=== PATIENT | male | born 1955 | race Native Hawaiian/Other Pacific Islander ===

== ENCOUNTER 2017-12-21 23:29 | Emergency (ER) | payer OTHER ==
[~2017-12-21] VITALS: Ht 185.4 cm; Wt 86.2 kg
[2017-12-22] MEDS ORDERED: METF500T8 (00:12)
[2017-12-22] MEDS ORDERED: METF500T61 (00:12)
[2017-12-22] MEDS ORDERED: LISI10TA2 (00:12)
[2017-12-22] MEDS ORDERED: SAXA5TAB (00:12)
[2017-12-22] MEDS ORDERED: ATOR80TA76 (00:12)
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
[2017-12-22 00:48] LABS: BASOPHILS % (AUTO) 0 % (0-10); EOSINOPHILS % (AUTO) 0 % (0-10); HEMATOCRIT 38 % (40-54); HEMOGLOBIN 13.1 G/DL (13.3-17.7); LYMPHOCYTES # (AUTO) 1.3 X 10^3 (1.0-4.0); LYMPHOCYTES % (AUTO) 17 % (12-44); MEAN CORPUSCULAR HEMOGLOBIN 33 PG (25-34); MEAN CORPUSCULAR HGB CONC 35 G/DL (32-36); MEAN CORPUSCULAR VOLUME 95 FL (80-99); MEAN PLATELET VOLUME 8.6 FL (7.4-10.4); MONOCYTES # (AUTO) 0.5 X 10^3 (0.0-1.0); MONOCYTES % (AUTO) 6 % (0-12); NEUTROPHILS % (AUTO) 76 % (42-75); PLATELET COUNT 271 10^3/uL (130-400); RED CELL DISTRIBUTION WIDTH 14.6 % (10.0-14.5); WHITE BLOOD COUNT 7.8 10^3/uL (4.3-11.0)
[2017-12-22 01:14] LABS: ALANINE AMINOTRANSFERASE 34 U/L (0-55); ALBUMIN 4.1 GM/DL (3.2-4.5); ALKALINE PHOSPHATASE 107 U/L (40-136); BILIRUBIN,TOTAL 0.4 MG/DL (0.1-1.0); BUN/CREATININE RATIO 17; CALCIUM 9.1 MG/DL (8.5-10.1); CARBON DIOXIDE 20 MMOL/L (21-32); CHLORIDE 109 MMOL/L (98-107); CREATININE SERUM 0.72 MG/DL (0.60-1.30); GFR ESTIMATED > 60; GLUCOSE 153 MG/DL (70-105); POTASSIUM 3.5 MMOL/L (3.6-5.0); SODIUM 144 MMOL/L (135-145); TOTAL PROTEIN 7.8 GM/DL (6.4-8.2)
[2017-12-22 01:55] LABS: BILIRUBIN,URINE NEGATIVE (NEGATIVE); CLARITY,URINE CLEAR; COLOR,URINE YELLOW; GLUCOSE, URINE (UA) 1+ (NEGATIVE); KETONES,URINE NEGATIVE (NEGATIVE); LEUKOCYTE ESTERASE ,URINE NEGATIVE (NEGATIVE); NITRITE,URINE NEGATIVE (NEGATIVE); PH,URINE 5 (5-9); PROTEIN,URINE 1+ (NEGATIVE); UROBILINOGEN,URINE NORMAL (NORMAL)
[2017-12-22 02:07] LABS: BACTERIA,URINE NEGATIVE /HPF; RBC,URINE RARE /HPF; SQUAMOUS EPITHELIAL CELL,UR 0-2 /HPF
[2017-12-22 02:09] LABS: AMPHETAMINE SCREEN, URINE NEGATIVE (NEGATIVE); BARBITURATE SCREEN URINE NEGATIVE (NEGATIVE); BENZODIAZEPINES SCREEN URINE NEGATIVE (NEGATIVE); CANNABINOID SCREEN, URINE POSITIVE (NEGATIVE); COCAINE SCREEN URINE NEGATIVE (NEGATIVE); METHADONE STAT NEGATIVE (NEGATIVE); METHAMPHETAMINE SCREEN URINE S NEGATIVE (NEGATIVE); OPIATE SCREEN URINE NEGATIVE (NEGATIVE); OXYCODONE STAT NEGATIVE (NEGATIVE); PROPOXYPHENE STAT NEGATIVE (NEGATIVE); TRICYCLIC ANTIDEPRESSANTS SCRE NEGATIVE (NEGATIVE)
[2017-12-22] MEDS ORDERED: ONDA4TAB11 PO (02:43)
[2017-12-22 02:52] VITALS: BP 152/75
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
--- NOTE | 2017-12-22 06:59 | Diagnostic Imaging Report ---
INDICATION: Abrasions and swelling to head and face. Rib pain. Findings: The heart size is normal. Lungs are clear. There is no pleural effusion or pneumothorax. There is no evidence of a rib fracture. IMPRESSION: No evidence of displaced rib fracture. Dictated by: Dictated on workstation # [id number]
== END 2017-12-22 02:52 | disposition home or self-care (01) ==
LOC: ER 23:33
DX: S00.03XA Contusion of scalp, initial encounter (principal); E11.9 Type 2 diabetes mellitus without complications; E78.00 Pure hypercholesterolemia, unspecified; I10 Essential (primary) hypertension; F12.90 Cannabis use, unspecified, uncomplicated; F17.210 Nicotine dependence, cigarettes, uncomplicated; Z95.1 Presence of aortocoronary bypass graft; X58.XXXA Exposure to other specified factors, initial encounter
CPT/HCPCS: 36415; 70450; 70486; 71100; 72125; 80053; 80306; 80320; 81000; 84484; 85025; 93005

== ENCOUNTER 2019-09-11 21:20 | Emergency (ER) | payer OTHER ==
[~2019-09-11] VITALS: Ht 185 cm; Wt 81.8 kg
[~2019-09-11 21:20] MED LIST: ATOR80TA76; LISI10TA2; METF500T61; METF500T8; ONDA4TAB11 PO; SAXA5TAB
[2019-09-11] MEDS ORDERED: NS IV 1000 ML 1,000 ML IV SCH (21:30)
--- NOTE | 2019-09-11 21:36 | ED General ---
General Stated Complaint: CONSTIPATION Source of Information: Patient, EMS Exam Limitations: No Limitations (KIMBERLYN ELLIS APRN) History of Present Illness Date Seen by Provider: Sep 11, 2019 Time Seen by Provider: 21:32 Initial Comments To ER per EMS from home with reports of constipation. No bowel movement in 2 days. Reports lower pelvic pain. No vomiting, drinks about 1 pint of whiskey per day. Timing/Duration: 1-2 Days Severity: Moderate Associated Systoms: Denies Symptoms (KIMBERLYN ELLIS APRN) Allergies and Home Medications Allergies Coded Allergies: No Known Drug Allergies (Unverified , 12/22/17) Home Medications Ondansetron 4 Mg Tab.rapdis, 4 MG PO Q6H PRN for NAUSEA/VOMITING Prescribed by: KITTY DORADO on 12/22/17 0243 Polyethylene Glycol 3350 17 Gm Powd.pack, 17 GM PO BID Prescribed by: BIANCA DWYER on 09/11/19 2212 Patient Home Medication List Home Medication List Reviewed: Yes (KIMBERLYN ELLIS APRN) Review of Systems Review of Systems Constitutional: see HPI EENTM: see HPI Respiratory: no symptoms reported Cardiovascular: no symptoms reported Gastrointestinal: constipation Genitourinary: no symptoms reported Musculoskeletal: no symptoms reported Skin: no symptoms reported Psychiatric/Neurological: No Symptoms Reported Hematologic/Lymphatic: No Symptoms Reported Immunological/Allergic: no symptoms reported (KIMBERLYN ELLIS APRN) Past Kfgywlg-Lkssmn-Qmrlxs Hx Patient Social History Alcohol Beverage of Choice: Vodka Type Used: Cigarettes Recent Foreign Travel: No Contact w/Someone Who Travel: No Recent Hopitalizations: No (KIMBERLYN ELLIS APRN) Past Medical History Surgeries: Yes CABG Respiratory: No Cardiac: Yes High Cholesterol, Hypertension Neurological: No Genitourinary: No Gastrointestinal: No Musculoskeletal: No Endocrine: Yes Diabetes, Non-Insulin dep Cancer: No Psychosocial: No (KIMBERLYN ELLIS APRN) Physical Exam Vital Signs Vital Signs - First Documented 09/11/19 21:22 Temp 36.2 Pulse 93 Resp 18 B/P (MAP) 179/100 (126) Pulse Ox 95 O2 Delivery Room Air (BIANCA DWYER MD) Vital Signs Capillary Refill : (KIMBERLYN ELLIS APRN) Height, Weight, BMI Height: 6'1.00" Weight: 190lbs. oz. [id number]; BMI Method:Estimated General Appearance: No Apparent Distress, WD/WN Eyes: Bilateral Eye Normal Inspection, Bilateral Eye PERRL, Bilateral Eye EOMI HEENT: PERRL/EOMI, TMs Normal Neck: Full Range of Motion, Normal Inspection Respiratory: No Accessory Muscle Use, No Respiratory Distress Gastrointestinal: Normal Bowel Sounds, Soft, Tenderness (suprapubic) Rectal: Other (fecal impaction on digital rectal exam. We'll give an enema.) Extremity: Normal Capillary Refill, Normal Inspection, Other (a missing left great toe, previous complication of diabetes while living in [facility].) Neurologic/Psychiatric: Alert, Oriented x3 Skin: Normal Color, Warm/Dry (KIMBERLYN ELLIS APRN) Progress/Results/Core Measures Suspected Sepsis SIRS Temperature: Pulse: Respiratory Rate: Laboratory Tests 09/11/19 21:33: White Blood Count 6.8 Blood Pressure / Mean: Laboratory Tests 09/11/19 21:33: Creatinine 0.77, INR Comment 1.0, Platelet Count 324, Total Bilirubin 0.5 (KIMBERLYN ELLIS APRN) Results/Orders Lab Results Laboratory Tests Test 09/11/19 21:33 Range/Units White Blood Count 6.8 4.3-11.0 10^3/uL Red Blood Count 3.57 L 4.35-5.85 10^6/uL Hemoglobin 11.4 L 13.3-17.7 G/DL Hematocrit 34 L 40-54 % Mean Corpuscular Volume 96 80-99 FL Mean Corpuscular Hemoglobin 32 25-34 PG Mean Corpuscular Hemoglobin Concent 33 32-36 G/DL Red Cell Distribution Width 18.8 H 10.0-14.5 % Platelet Count 324 130-400 10^3/uL Mean Platelet Volume 8.1 7.4-10.4 FL Neutrophils (%) (Auto) 81 H 42-75 % Lymphocytes (%) (Auto) 14 12-44 % Monocytes (%) (Auto) 5 0-12 % Eosinophils (%) (Auto) 0 0-10 % Basophils (%) (Auto) 0 0-10 % Neutrophils # (Auto) 5.5 1.8-7.8 X 10^3 Lymphocytes # (Auto) 0.9 L 1.0-4.0 X 10^3 Monocytes # (Auto) 0.4 0.0-1.0 X 10^3 Eosinophils # (Auto) 0.0 0.0-0.3 10^3/uL Basophils # (Auto) 0.0 0.0-0.1 10^3/uL Sodium Level 147 H 135-145 MMOL/L Potassium Level 4.3 3.6-5.0 MMOL/L Chloride Level 105 98-107 MMOL/L Carbon Dioxide Level 23 21-32 MMOL/L Anion Gap 19 H 5-14 MMOL/L Blood Urea Nitrogen 14 7-18 MG/DL Creatinine 0.77 0.60-1.30 MG/DL Estimat Glomerular Filtration Rate > 60 BUN/Creatinine Ratio 18 Glucose Level 142 H 70-105 MG/DL Calcium Level 9.0 8.5-10.1 MG/DL Corrected Calcium 9.0 8.5-10.1 MG/DL Total Bilirubin 0.5 0.1-1.0 MG/DL Aspartate Amino Transf (AST/SGOT) 141 H 5-34 U/L Alanine Aminotransferase (ALT/SGPT) 409 H 0-55 U/L Alkaline Phosphatase 151 H 40-136 U/L Total Protein 7.5 6.4-8.2 GM/DL Albumin 4.0 3.2-4.5 GM/DL Serum Alcohol 355 *H <10 MG/DL (BIANCA DWYER MD) Vital Signs/I&O 09/11/19 21:22 Temp 36.2 Pulse 93 Resp 18 B/P (MAP) 179/100 (126) Pulse Ox 95 O2 Delivery Room Air (BIANCA DWYER MD) Vital Signs/I&O Capillary Refill : (KIMBERLYN ELLIS APRN) Departure Communication (Admissions) minimal results with soapsuds enema administered by me. Only had out what i put in. Will give magnesium citrate. (KIMBERLYN ELLIS APRN) Impression Primary Impression: Constipation Qualified Codes: K59.00 - Constipation, unspecified Disposition: HOME, SELF-CARE Condition: Stable Departure-Patient Inst. Decision time for Depature: 22:12 (BIANCA DWYER MD) Referrals: NO,LOCAL PHYSICIAN (PCP/Family) Primary Care Physician Patient Instructions: Constipation, Adult (DC) Add. Discharge Instructions: 1. Return to ER for any concerns 2. Use miralax as directed Scripts Polyethylene Glycol 3350 (Miralax) 17 Gm Powd.pack 17 GM PO BID, #6 EACH Prov: BIANCA DWYER MD 09/11/19 KIMBERLYN ELLIS APRN Sep 11, 2019 21:36 BIANCA DWYER MD Sep 11, 2019 22:12
[2019-09-11 21:41] LABS: BASOPHILS % (AUTO) 0 % (0-10); EOSINOPHILS % (AUTO) 0 % (0-10); HEMATOCRIT 34 % (40-54); HEMOGLOBIN 11.4 G/DL (13.3-17.7); LYMPHOCYTES # (AUTO) 0.9 X 10^3 (1.0-4.0); LYMPHOCYTES % (AUTO) 14 % (12-44); MEAN CORPUSCULAR HEMOGLOBIN 32 PG (25-34); MEAN CORPUSCULAR HGB CONC 33 G/DL (32-36); MEAN CORPUSCULAR VOLUME 96 FL (80-99); MEAN PLATELET VOLUME 8.1 FL (7.4-10.4); MONOCYTES # (AUTO) 0.4 X 10^3 (0.0-1.0); MONOCYTES % (AUTO) 5 % (0-12); NEUTROPHILS # (AUTO) 5.5 X 10^3 (1.8-7.8); NEUTROPHILS % (AUTO) 81 % (42-75); PLATELET COUNT 324 10^3/uL (130-400); RED CELL DISTRIBUTION WIDTH 18.8 % (10.0-14.5); WHITE BLOOD COUNT 6.8 10^3/uL (4.3-11.0)
[2019-09-11 21:58] LABS: ALANINE AMINOTRANSFERASE 409 U/L (0-55); ALKALINE PHOSPHATASE 151 U/L (40-136); BILIRUBIN,TOTAL 0.5 MG/DL (0.1-1.0); BUN/CREATININE RATIO 18; CARBON DIOXIDE 23 MMOL/L (21-32); CHLORIDE 105 MMOL/L (98-107); CREATININE SERUM 0.77 MG/DL (0.60-1.30); GFR ESTIMATED > 60; GLUCOSE 142 MG/DL (70-105); POTASSIUM 4.3 MMOL/L (3.6-5.0); SODIUM 147 MMOL/L (135-145); TOTAL PROTEIN 7.5 GM/DL (6.4-8.2)
[2019-09-11] MEDS ORDERED: POLY17PO6 PO (22:12)
[2019-09-11 22:18] LABS: PROTHROMBIN TIME PATIENT 13.7 SEC (12.2-14.7)
[2019-09-11] MEDS ORDERED: MAGNESIUM CITRATE 300 ML BTL PO ONE (22:30)
--- NOTE | 2019-09-11 22:45 | NUR ---
Patient had a large, hard bowel movement prior to discharge.
[2019-09-11 22:47] VITALS: BP 174/101
--- NOTE | 2019-09-12 07:04 | Diagnostic Imaging Report ---
INDICATION: Abdominal pain. PA chest, supine and upright abdominal images are obtained. FINDINGS: There are postoperative changes from a median sternotomy. There is left basilar atelectasis. There is no intraperitoneal free air. There are degenerative changes in lumbar spine. Bowel gas pattern is normal. There are no pathologic masses or calcifications. There is a moderate amount of stool in the ascending colon. Remainder of the colon relatively clear. IMPRESSION: No acute abnormalities in the abdomen. Dictated by: Dictated on workstation # [id number]
== END 2019-09-11 22:47 | disposition home or self-care (01) ==
LOC: EDUNIT# 21:20 → ER 21:21
DX: K59.00 Constipation, unspecified (principal); I10 Essential (primary) hypertension; E11.9 Type 2 diabetes mellitus without complications; E78.00 Pure hypercholesterolemia, unspecified; Z95.1 Presence of aortocoronary bypass graft
CPT/HCPCS: 36415; 74022; 80053; 80320; 85025; 85610; 96360

== ENCOUNTER 2019-10-24 09:57 | Emergency (ER) | payer OTHER ==
[~2019-10-24] VITALS: Ht 185 cm; Wt 83.4 kg
[~2019-10-24 09:57] MED LIST changes: +METF500T19; -METF500T8; +POLY17PO6 PO
--- NOTE | 2019-10-24 10:59 | ED Integumentary General ---
General Chief Complaint: Skin/Wound Problems Stated Complaint: TOE PAIN Nursing Triage Note: pt present to ed with complaints of l third toe wound/bruising. noticed it yesterday but doesnt remember any injury. pt also complains of wound to r forearm. Source: patient Exam Limitations: no limitations History of Present Illness Date Seen by Provider: Oct 24, 2019 Time Seen by Provider: 10:52 Initial Comments 64 year old male who presents to the ED with c/o left 3 toe bruising and wound to the dorsal surface. He reports that he fell 3 days ago and thinks he injured it then. He denies pain. 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 He has healing abrasion to right forearm. He has hypertension today and reports that he did not take his metoprolol as prescribed today. Timing/Duration: yesterday Location: feet Allergies and Home Medications Allergies Coded Allergies: No Known Drug Allergies (Unverified , 12/22/17) Home Medications Ondansetron 4 Mg Tab.rapdis, 4 MG PO Q6H PRN for NAUSEA/VOMITING Prescribed by: KITTY DORADO on 12/22/17 0243 Polyethylene Glycol 3350 17 Gm Powd.pack, 17 GM PO BID Prescribed by: BIANCA DWYER on 09/11/19 2212 Patient Home Medication List Home Medication List Reviewed: Yes Review of Systems Review of Systems Constitutional: see HPI; No chills, No fever Skin: see HPI, other (abrasion to the dorsal surface of the left 3rd toe and echymosis to the ordonez surface of the same toe. ) Past Xlkdgzd-Rvkask-Gewllm Hx Patient Social History Alcohol Use: Regular Use Number of Drinks Today: FF Alcohol Beverage of Choice: Vodka Recreational Drug Use: Yes (past hx of speed, lsd, opiods) Drug of Choice: weed Smoking Status: Current Everyday Smoker Type Used: Cigarettes 2nd Hand Smoke Exposure: Yes Recent Foreign Travel: No Contact w/Someone Who Travel: No Recent Infectious Disease Expo: No Recent Hopitalizations: No Physical Abuse: No Sexual Abuse: No Mistreated: No Fear: No Immunizations Up To Date PED Vaccines UTD: Yes Seasonal Allergies Seasonal Allergies: No Past Medical History Surgeries: Yes (l big toe amputation) Cardiac, CABG, Orthopedic Respiratory: No Cardiac: Yes Coronary Artery Disease, High Cholesterol, Hypertension Neurological: No Genitourinary: No Gastrointestinal: Yes Liver Disease/Jaundice Musculoskeletal: Yes (toe amputation from diabetes) Endocrine: Yes Diabetes, Non-Insulin dep HEENT: No Cancer: No Psychosocial: No Integumentary: No Physical Exam Vital Signs Vital Signs - First Documented 10/24/19 10:10 Temp 36.7 Pulse 121 Resp 16 B/P (MAP) 181/123 (142) Pulse Ox 93 Capillary Refill : Less Than 3 Seconds General Appearance: WD/WN, no apparent distress HEENT: PERRL/EOMI, normal ENT inspection, TMs normal, pharynx normal Cardiovascular: normal peripheral pulses, regular rate, rhythm, no edema, no gallop, no JVD, no murmur Respiratory: chest non-tender, lungs clear, normal breath sounds, no respiratory distress, no accessory muscle use Skin: normal color, warm/dry Skin Problem Location: lower extremities (left third toe ecchymosis to the palmar surface and abrasion to the dorsal surface, no surrounding erythema or drainage to suggest infection.) Progress/Results/Core Measures Results/Orders My Orders Orders - DESHAWN MARIE Toe(S) (10/24/19 10:55) Metoprolol Succinate (Xl) Tab (Toprol Xl (10/24/19 11:00) Vital Signs/I&O 10/24/19 10/24/19 10:10 12:23 Temp 36.7 Pulse 121 95 Resp 16 16 B/P (MAP) 181/123 (142) 169/93 Pulse Ox 93 99 Blood Pressure Mean: 142 POS Departure Impression Primary Impression: Abrasion Additional Impression: Fracture of second toe, left, closed Qualified Codes: S92.502K - Displaced unspecified fracture of left lesser toe(s), subsequent encounter for fracture with nonunion Disposition: 01 HOME, SELF-CARE Condition: Stable/Unchanged Departure-Patient Inst. Decision time for Depature: 12:11 Referrals: SAMUEL LANDRY MD NO,LOCAL PHYSICIAN (PCP) Primary Care Physician Patient Instructions: Wound Care (DC), Skin Abrasions (DC), Toe Fracture (DC) Add. Discharge Instructions: Performed good wound care to the left third toe. Watch for signs of infection such as increased redness, swelling, drainage, pain. Call Dr. Garibay appointment to schedule follow-up wound care to ensure that this heals appropriately. Return back to emergency room for worsening symptoms, signs of infection, fevers, or any other concerns as needed. All discharge instructions reviewed with patient and/or family. Voiced understanding. DESHAWN MARIE Oct 24, 2019 10:59 POS
[2019-10-24] MEDS ORDERED: meTOproloL SUCCINATE 50 MG (TOPROL XL) TAB PO SCH (11:00)
--- NOTE | 2019-10-24 12:01 | Diagnostic Imaging Report ---
INDICATION: Bruising, wound. COMPARISON: None available. TECHNIQUE: Three radiographs of the left toes dated October 24, 2019. FINDINGS: The first digit is absent distal to the level of the first metatarsal neck. A fracture is identified associated with the second metatarsal neck. Significant callus formation is noted about this fracture plane, though fracture plane remains well visualized. Mild dorsal displacement is noted. No additional acute fracture. No destructive osseous process. No suspicious radiopaque foreign body. Moderate vascular calcifications. IMPRESSION: Healing subacute mildly dorsally displaced fracture involving the second metatarsal neck. Given persistent fracture lucency, developing nonunion may be present. Recommend continued radiographic follow-up and comparison to prior imaging. Presumed amputation involving the distal first metatarsal. No evidence of osseous destruction. If there remains concern for underlying osteomyelitis, follow-up radiographs in 10-14 days would be recommended. Alternately, MRI with and without contrast could also be considered. Dictated by: Dictated on workstation # [id number]
[2019-10-24 12:23] VITALS: BP 169/93
== END 2019-10-24 12:22 | disposition home or self-care (01) ==
LOC: EDUNIT# 09:57 → ER 09:58
DX: S92.502A Displaced unspecified fracture of left lesser toe(s), initial encounter for closed fracture (principal); S90.415A Abrasion, left lesser toe(s), initial encounter; S50.811A Abrasion of right forearm, initial encounter; I10 Essential (primary) hypertension; E11.9 Type 2 diabetes mellitus without complications; E78.00 Pure hypercholesterolemia, unspecified; I25.10 Atherosclerotic heart disease of native coronary artery without angina pectoris; F17.210 Nicotine dependence, cigarettes, uncomplicated; Z91.14 Patient's other noncompliance with medication regimen; Z95.1 Presence of aortocoronary bypass graft; Z89.412 Acquired absence of left great toe; W19.XXXA Unspecified fall, initial encounter
CPT/HCPCS: 73660

== ENCOUNTER → 2020-11-17 | Outpatient (CLI) | payer MEDICARE, OTHER ==
[~2020-11-17] MED LIST changes: +AMLO-251 PO; +AMOX1TAB12 PO; +ASPI-999 PO; -ATOR80TA76; +ATOR80TA76 PO; +CLOP75TA28 PO; +INSU100V5 SQ; -LISI10TA2; +LISI10TA2 PO; +METF-865 PO; -METF500T19; +METO-461 PO; +METO50TA15 PO
== END ==
LOC: WOUNDCARE 13:18
PROVIDERS: ATTEND Surgery
DX: I70.234 Atherosclerosis of native arteries of right leg with ulceration of heel and midfoot (principal); E11.621 Type 2 diabetes mellitus with foot ulcer; L97.416 Non-pressure chronic ulcer of right heel and midfoot with bone involvement without evidence of necrosis; L97.412 Non-pressure chronic ulcer of right heel and midfoot with fat layer exposed; L97.212 Non-pressure chronic ulcer of right calf with fat layer exposed; T65.222A Toxic effect of tobacco cigarettes, intentional self-harm, initial encounter; F17.218 Nicotine dependence, cigarettes, with other nicotine-induced disorders
CPT/HCPCS: A6266; G0463; 99213

== ENCOUNTER → 2022-08-11 | Outpatient (CLI) | payer MEDICARE, OTHER ==
[~2022-08-11] MED LIST changes: -LISI10TA2 PO; +LISI10TA25 PO
== END ==
LOC: WOUNDCARE 08:47
PROVIDERS: ATTEND Family Medicine
DX: T81.31XA Disruption of external operation (surgical) wound, not elsewhere classified, initial encounter (principal); M86.472 Chronic osteomyelitis with draining sinus, left ankle and foot; E11.621 Type 2 diabetes mellitus with foot ulcer; E11.40 Type 2 diabetes mellitus with diabetic neuropathy, unspecified; I70.245 Atherosclerosis of native arteries of left leg with ulceration of other part of foot
CPT/HCPCS: 99213

== ENCOUNTER → 2022-08-23 | Outpatient (CLI) | payer MEDICARE | LOC: WOUNDCARE 08:05 | PROVIDERS: ATTEND Family Medicine | DX: T81.31XA Disruption of external operation (surgical) wound, not elsewhere classified, initial encounter (principal); M86.472 Chronic osteomyelitis with draining sinus, left ankle and foot; E11.621 Type 2 diabetes mellitus with foot ulcer; L97.509 Non-pressure chronic ulcer of other part of unspecified foot with unspecified severity; E11.40 Type 2 diabetes mellitus with diabetic neuropathy, unspecified; I70.245 Atherosclerosis of native arteries of left leg with ulceration of other part of foot | CPT/HCPCS: 11042; G0463 ==

== ENCOUNTER → 2022-08-30 | Outpatient (CLI) | payer MEDICARE | LOC: WOUNDCARE 09:02 | PROVIDERS: ATTEND Family Medicine | DX: T81.31XA Disruption of external operation (surgical) wound, not elsewhere classified, initial encounter (principal); M86.472 Chronic osteomyelitis with draining sinus, left ankle and foot; E11.621 Type 2 diabetes mellitus with foot ulcer; E11.40 Type 2 diabetes mellitus with diabetic neuropathy, unspecified; E11.52 Type 2 diabetes mellitus with diabetic peripheral angiopathy with gangrene; I70.245 Atherosclerosis of native arteries of left leg with ulceration of other part of foot; I96 Gangrene, not elsewhere classified | CPT/HCPCS: 11042; A6207; G0463 ==

== ENCOUNTER → 2022-09-06 | Outpatient (CLI) | payer MEDICARE | LOC: WOUNDCARE 08:12 | PROVIDERS: ATTEND Family Medicine | DX: T81.31XA Disruption of external operation (surgical) wound, not elsewhere classified, initial encounter (principal); M86.472 Chronic osteomyelitis with draining sinus, left ankle and foot; E11.621 Type 2 diabetes mellitus with foot ulcer; E11.42 Type 2 diabetes mellitus with diabetic polyneuropathy; I70.245 Atherosclerosis of native arteries of left leg with ulceration of other part of foot; L97.509 Non-pressure chronic ulcer of other part of unspecified foot with unspecified severity | CPT/HCPCS: 11042; G0463 ==

== ENCOUNTER → 2022-09-14 | Outpatient (CLI) | payer MEDICARE | LOC: WOUNDCARE 08:09 | PROVIDERS: ATTEND Family Medicine | DX: T81.31XA Disruption of external operation (surgical) wound, not elsewhere classified, initial encounter (principal); I96 Gangrene, not elsewhere classified; M86.472 Chronic osteomyelitis with draining sinus, left ankle and foot; E11.621 Type 2 diabetes mellitus with foot ulcer; E11.40 Type 2 diabetes mellitus with diabetic neuropathy, unspecified; I70.245 Atherosclerosis of native arteries of left leg with ulceration of other part of foot; E11.52 Type 2 diabetes mellitus with diabetic peripheral angiopathy with gangrene | CPT/HCPCS: 11042; A6021; G0463 ==

== ENCOUNTER → 2022-09-19 | Outpatient (RCR) | payer MEDICARE ==
[~2022-09-19] MED LIST changes: +AMLO-250 PO; +ASPI-1238 PO; +FERR-84 PO; +ISOS30TA82 PO; +LISI5TAB20 PO; +METF-397 PO; +MULT-1136 PO; +PANT40TA52 PO; +POTA99CA PO; +RIVA2.5T5 PO; +SILD20TA14 PO
== END | disposition home or self-care (01) ==
LOC: WOUNDCARE 08-22 08:16
PROVIDERS: ATTEND Family Medicine
DX: M86.679 Other chronic osteomyelitis, unspecified ankle and foot (principal)
CPT/HCPCS: 82947; G0277; 99183

== ENCOUNTER → 2022-09-20 | Outpatient (CLI) | payer MEDICARE | LOC: WOUNDCARE 08:12 | PROVIDERS: ATTEND Family Medicine | DX: T81.31XA Disruption of external operation (surgical) wound, not elsewhere classified, initial encounter (principal); M86.472 Chronic osteomyelitis with draining sinus, left ankle and foot; E11.621 Type 2 diabetes mellitus with foot ulcer; E11.40 Type 2 diabetes mellitus with diabetic neuropathy, unspecified; I70.245 Atherosclerosis of native arteries of left leg with ulceration of other part of foot | CPT/HCPCS: 11042; 85652; 86141; A6021; G0463; 36415 ==

== ENCOUNTER 2022-09-22 11:01 | Observation (INO) | payer MEDICARE ==
[~2022-09-22] VITALS: Ht 185.5 cm; Wt 71.0 kg
[~2022-09-22 11:01] MED LIST changes: -AMLO-250 PO; -ASPI-1238 PO; -FERR-84 PO; -ISOS30TA82 PO; -LISI5TAB20 PO; -METF-397 PO; -MULT-1136 PO; -PANT40TA52 PO; -POTA99CA PO; -RIVA2.5T5 PO; -SILD20TA14 PO
[2022-09-22 11:57] LABS: BASOPHILS % (AUTO) 0 % (0-10); EOSINOPHILS # (AUTO) 0.1 10^3/uL (0.0-0.3); EOSINOPHILS % (AUTO) 1 % (0-10); HEMATOCRIT 32 % (40-54); HEMOGLOBIN 10.1 g/dL (13.3-17.7); LYMPHOCYTES # (AUTO) 1.3 10^3/uL (1.0-4.0); LYMPHOCYTES % (AUTO) 16 % (12-44); MEAN CORPUSCULAR HEMOGLOBIN 28 pg (25-34); MEAN CORPUSCULAR HGB CONC 31 g/dL (32-36); MEAN CORPUSCULAR VOLUME 89 fL (80-99); MEAN PLATELET VOLUME 8.7 fL (9.0-12.2); MONOCYTES # (AUTO) 0.5 10^3/uL (0.0-1.0); MONOCYTES % (AUTO) 7 % (0-12); NEUTROPHILS # (AUTO) 6.3 10^3/uL (1.8-7.8); NEUTROPHILS % (AUTO) 77 % (42-75); PLATELET COUNT 302 10^3/uL (130-400); WHITE BLOOD COUNT 8.2 10^3/uL (4.3-11.0)
--- NOTE | 2022-09-22 11:59 | ED Chest Pain ---
General Chief Complaint: Chest Pain Stated Complaint: MUSCLE TIGHTNESS Nursing Triage Note: PT AMB TO ED BY POV WITH C/O INTERMITTENT L SIDED CHEST WALL PAIN. PT REPORTS PAIN STARTED 3 DAYS AGO, WENT AWAY, BUT CAME BACK THIS MORNING AROUND 0730. PT HAS CARDIAC HX, BUT STATES THIS DOES NOT FEEL SIMILAR. WORSE WITH PALPATION AND MOVEMENT, PAIN DOES NOT RADIATE. DENIES N/V, SOB. Source: patient Exam Limitations: no limitations History of Present Illness Date Seen by Provider: Sep 22, 2022 Time Seen by Provider: 11:40 Initial Comments Patient is a 67-year-old male with a history of insulin-dependent diabetes, coronary artery disease status post coronary artery bypass grafting, peripheral vascular disease status post femorofemoral bypass who presents to the emergency department with a chief complaint of substernal chest pain this morning at 0730 while walking and to get hyperbaric therapy for a wound on his foot. He states that it felt like it was not inside his chest, his chest wall feels tender. He states no shortness of breath with it, nausea or sweating. He has not had cardiac evaluation he states since he had bypass surgery, does not currently have a local leasing consultant. He is treated through [facility]. He states he also had episodes yesterday and the day prior. He denies recent illness such as fever, chills, cough or congestion. No trauma. He is currently on Plavix. Pain-free at the time of presentation. All other review of systems reviewed and negative except as stated Timing/Duration: 4-6 hours Severity/Quality: mild, sharp Location: central Radiation: no radiation Activities at Onset: activity (walking) Prior CP/Workup: other (prior CABG) ASA po PHOTOGRAPHER MODEL: No NTG SL PHOTOGRAPHER MODEL: No Associated Symptoms: denies symptoms Allergies and Home Medications Allergies Coded Allergies: No Known Drug Allergies (Unverified , 12/22/17) Patient Home Medication List Home Medication List Reviewed: Yes Amlodipine Besylate (Amlodipine Besylate) 5 Mg Tablet, 2.5 MG PO DAILY, (Reported) Entered as Reported by: MARIOLA TSAI on 09/22/22 031 Last Action: Continued Atorvastatin Calcium (Atorvastatin Calcium) 80 Mg Tablet, 80 MG PO HS, (Reported) Entered as Reported by: MARIOLA TSAI on 09/22/22 864 Last Action: Continued Clopidogrel Bisulfate (Clopidogrel) 75 Mg Tablet, 75 MG PO DAILY, (Reported) Entered as Reported by: MARIOLA TSAI on 09/22/221533 Last Action: Continued Ferrous Sulfate (Iron) 325 Mg (65 Mg Iron) Tablet, 325 MG PO DAILY, (Reported) Entered as Reported by: MARIOLA TSAI on 09/22/221532 Last Action: Held Insulin Determir (Levemir) 100 Unit/Ml Soln, 10 UNITS SQ BID, (Reported) Entered as Reported by: DAVID WICK on 11/07/20 1645 Last Action: Continued Lisinopril (Lisinopril) 5 Mg Tablet, 5 MG PO DAILY, (Reported) Entered as Reported by: MARIOLA TSAI on 09/22/221532 Last Action: Continued Metformin HCl (Metformin HCl) 500 Mg Tablet, 500 MG PO BID, (Reported) Entered as Reported by: MARIOLA TSAI on 09/22/221532 Last Action: Held Multivitamin (Multivitamin) 1 Each Tablet, 1 EACH PO DAILY, (Reported) Entered as Reported by: MARIOLA TSAI on 09/22/221532 Last Action: Held Pantoprazole Sodium (Pantoprazole Sodium) 40 Mg Tablet.dr, 40 MG PO DAILY, (Reported) Entered as Reported by: MARIOLA TSAI on 09/22/221532 Last Action: Continued Potassium Citrate (Potassium) 99 Mg Capsule, 99 MG PO HS, (Reported) Entered as Reported by: MARIOLA TSAI on 09/22/221532 Last Action: Held Rivaroxaban (Xarelto) 2.5 Mg Tablet, 2.5 MG PO BID, (Reported) Entered as Reported by: MARIOLA TSAI on 09/22/221532 Last Action: Converted Sildenafil Citrate (Sildenafil) 20 Mg Tablet, 20 MG PO UD PRN for ED, (Reported) Entered as Reported by: MARIOLA TSAI on 09/22/221532 Last Action: Held Discontinued Medications Amlodipine Besylate (Amlodipine Besylate) 10 Mg Tablet, 10 MG PO DAILY Discontinued Reason: No Longer Taking Prescribed by: BAYLEE HUIZAR on 11/11/20 1210 Last Action: Discontinued Amoxicillin/Potassium Clav (Amox Tr-K Clv 875-125 mg Tab) 1 Each Tablet, 875 MG PO BID WITH MEALS Discontinued Reason: No Longer Taking Prescribed by: MADELAINE RIVERA on 11/11/20 1629 Last Action: Discontinued Aspirin (Aspirin) 81 Mg Tab.chew, 81 MG PO DAILY, (Reported) Discontinued Reason: No Longer Taking Entered as Reported by: DAVID WICK on 11/07/20 1644 Last Action: Discontinued Atorvastatin Calcium (Atorvastatin Calcium) 80 Mg Tablet, 40 MG PO HS, (Reported) Discontinued Reason: No Longer Taking Entered as Reported by: CRISTAL LAGUNA on 12/22/1711 Last Action: Discontinued Clopidogrel Bisulfate (Clopidogrel) 75 Mg Tablet, 75 MG PO DAILY Discontinued Reason: No Longer Taking Prescribed by: BAYLEE HUIZAR on 11/11/20 121 Last Action: Discontinued Lisinopril (Lisinopril) 10 Mg Tablet, 10 MG PO DAILY, (Reported) Discontinued Reason: No Longer Taking Entered as Reported by: CRISTAL LAGUNA on 12/22/1711 Last Action: Discontinued Metformin HCl (Metformin HCl ER) 500 Mg Tab.er.24h, 500 MG PO BID, (Reported) Discontinued Reason: No Longer Taking Entered as Reported by: CRISTAL LAGUNA on 12/22/1711 Last Action: Discontinued Metoprolol Tartrate (Lopressor) 100 Mg Tablet, 100 MG PO BID Discontinued Reason: No Longer Taking Prescribed by: BAYLEE HUIZAR on 11/11/201209 Last Action: Discontinued Review of Systems Review of Systems Constitutional: see HPI EENTM: No Symptoms Reported Respiratory: No Symptoms Reported Cardiovascular: Chest Pain Past [place]-Kclbal Hx Patient Social History Tobacco Use?: No Smoking Status: Former Smoker Use of E-Cig and/or Vaping dev: No Substance use?: Yes Substance type: Marijuana Substance frequency: Daily Alcohol Use?: No Pt feels they are or have been: No Immunizations Up To Date PED Vaccines UTD: Yes Influenza Vaccine Up-to-Date: No; Not Current First/Initial COVID19 Vaccinat: 2020 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[employer] Seasonal Allergies Seasonal Allergies: No Past Medical History Surgery/Hospitalization HX: TRIPLE BYPASS, HTN, DM2, PAD Surgeries: Yes (LEFT big toe amputation) Cardiac, CABG, Orthopedic Respiratory: No Currently Using CPAP: No Currently Using BIPAP: No Cardiac: Yes (CABG) Coronary Artery Disease, High Cholesterol, Hypertension Neurological: No Genitourinary: No Gastrointestinal: Yes Liver Disease/Jaundice Musculoskeletal: Yes (toe amputation from diabetes) Amputee Endocrine: Yes Diabetes, Non-Insulin dep HEENT: No Cancer: No Psychosocial: No Integumentary: No Blood Disorders: No Family Medical History No Pertinent Family Hx Physical Exam Vital Signs Vital Signs - First Documented 09/22/22 11:10 Temp 36.9 Pulse 72 Resp 16 B/P (MAP) 129/76 (93) Pulse Ox 95 O2 Delivery Room Air Capillary Refill : Less Than 3 Seconds Height, Weight, BMI Height: 6'1.00" Weight: 190lbs. oz. 86.668577ux; 21.00 BMI Method:Estimated General Appearance: No Apparent Distress, Thin HEENT: PERRL/EOMI Neck: Normal Inspection Respiratory: Lungs Clear, Normal Breath Sounds, No Accessory Muscle Use, No Res piratory Distress, Other (chest is slightly tender to palpation over the sternum; very prominent sternum) Cardiovascular: Regular Rate, Rhythm Gastrointestinal: Non Tender, Soft Extremity: Normal Capillary Refill, Normal Inspection, Normal Range of Motion, Non Tender, No Calf Tenderness, No Pedal Edema Neurologic/Psychiatric: Alert, Oriented x3, No Motor/Sensory Deficits, Normal Mood/Affect, broadcaster II-XII Norm as Tested Skin: Normal Color, Warm/Dry Progress/Results/Core Measures Results/Orders Lab Results Laboratory Tests Test 09/22/22 11:40 Range/Units White Blood Count 8.2 4.3-11.0 10^3/uL Red Blood Count 3.65 L 4.30-5.52 10^6/uL Hemoglobin 10.1 L 13.3-17.7 g/dL Hematocrit 32 L 40-54 % Mean Corpuscular Volume 89 80-99 fL Mean Corpuscular Hemoglobin 28 25-34 pg Mean Corpuscular Hemoglobin Concent 31 L 32-36 g/dL Red Cell Distribution Width 17.1 H 10.0-14.5 % Platelet Count 302 130-400 10^3/uL Mean Platelet Volume 8.7 L 9.0-12.2 fL Immature Granulocyte % (Auto) 0 % Neutrophils (%) (Auto) 77 H 42-75 % Lymphocytes (%) (Auto) 16 12-44 % Monocytes (%) (Auto) 7 0-12 % Eosinophils (%) (Auto) 1 0-10 % Basophils (%) (Auto) 0 0-10 % Neutrophils # (Auto) 6.3 1.8-7.8 10^3/uL Lymphocytes # (Auto) 1.3 1.0-4.0 10^3/uL Monocytes # (Auto) 0.5 0.0-1.0 10^3/uL Eosinophils # (Auto) 0.1 0.0-0.3 10^3/uL Basophils # (Auto) 0.0 0.0-0.1 10^3/uL Immature Granulocyte # (Auto) 0.0 0.0-0.1 10^3/uL Prothrombin Time 16.4 H 12.2-14.7 SEC INR Comment 1.3 0.8-1.4 Activated Partial Thromboplast Time 38 H 24-35 SEC Sodium Level 140 135-145 MMOL/L Potassium Level 5.2 H 3.6-5.0 MMOL/L Chloride Level 106 98-107 MMOL/L Carbon Dioxide Level 25 21-32 MMOL/L Anion Gap 9 5-14 MMOL/L Blood Urea Nitrogen 36 H 7-18 MG/DL Creatinine 1.05 0.60-1.30 MG/DL Estimat Glomerular Filtration Rate 78 BUN/Creatinine Ratio 34 Glucose Level 114 H 70-105 MG/DL Calcium Level 9.2 8.5-10.1 MG/DL Corrected Calcium 9.7 8.5-10.1 MG/DL Magnesium Level 1.7 1.6-2.4 MG/DL Total Bilirubin 0.2 0.1-1.0 MG/DL Aspartate Amino Transf (AST/SGOT) 33 5-34 U/L Alanine Aminotransferase (ALT/SGPT) 44 0-55 U/L Alkaline Phosphatase 126 40-136 U/L Myoglobin 112.3 H 10.0-92.0 NG/ML Troponin I 0.061 H <0.028 NG/ML Total Protein 6.9 6.4-8.2 GM/DL Albumin 3.4 3.2-4.5 GM/DL My Orders Orders - NORMA TAMEZ MD Cbc With Automated Diff (09/22/22 11:51) Magnesium (09/22/22 11:51) Chest 1 View, Ap/Pa Only (09/22/22 11:51) Comprehensive Metabolic Panel (09/22/22 11:51) Myoglobin Serum (09/22/22 11:51) Protime With Inr (09/22/22 11:51) Partial Thromboplastin Time (09/22/22 11:51) O2 (09/22/22 11:51) Monitor-Rhythm Ecg Trace Only (09/22/22 11:51) Ed Iv/Invasive Line Start (09/22/22 11:51) Troponin I [place] (09/22/22 11:51) Aspirin Chewable Tablet (Baby Aspirin Ch (09/22/22 12:15) Ekg Tracing (09/22/22 12:32) Ed Admission (Communication) (09/22/22 13:41) Medications Given in ED Vital Signs/I&O 09/22/22 11:10 Temp 36.9 Pulse 72 Resp 16 B/P (MAP) 129/76 (93) Pulse Ox 95 O2 Delivery Room Air Blood Pressure Mean: 93 Admisison Planning May Need Admission (Planning): 12:32 Progress Progress Note : Time: 12:32 Progress Note Noted positive troponin from the lab. Vital signs of been stable. Patient was pain-free on admission to the ER. We will consult with cardiology, Dr. Soto and admit to Dr. Pereyra for further cardiac evaluation. Initial ECG Impression Date: Sep 22, 2022 Initial ECG Impression Time: 11:51 Initial ECG Rate: 59 Initial ECG Rhythm: Normal Sinus Initial ECG Intervals: Normal Initial ECG Impression: Normal Diagnostic Imaging Diagonstic Imaging: Xray Plain Films/CT/US/NM/MRI: chest Comments [facility]. [place], [place] NAME: WILD FARRAR Semaj [facility] REC#: [id number] PT STATUS: REG ER : 1955 PHYSICIAN: NORMA TAMEZ MD ADMIT DATE: 09/22/22/ER Draft Date of Exam:09/22/22 CHEST 1 VIEW, AP/PA ONLY Indication: Intermittent left-sided chest wall pain. Time of Exam: 11:54 AM Correlation is made with prior chest 09/11/2019. Changes of median sternotomy are noted. There appears to be a small left pleural effusion. There may be minimal infiltrate or atelectasis in the left base, as well. Right lung is clear. No pneumothorax is identified. IMPRESSION: Small left pleural effusion with mild left basilar infiltrate and/or atelectasis. Dictated on workstation # [id number] Dict: 09/22/22 1210 Trans: 09/22/[address] [facility] [id number] Interpreted by: OLEGARIO MOODY MD Electronically signed by: Departure Communication (Admissions) Time/Spoke to Admitting Phy: 13:[address] Pereyra - she will do que'd orders Time/Spoke to Consulting Phy: 13:[address] Soto Impression Primary Impression: Elevated troponin Additional Impression: Diabetes Qualified Codes: E13.59 - Other specified diabetes mellitus with other circulatory complications; Z79.4 - vermin exterminator (current) use of insulin Disposition: ADMITTED INPATIENT Condition: Stable Admissions Decision to Admit Reason: Admit from ER (General) Decision to Admit/Date: Sep 22, 2022 Time/Decision to Admit Time: 13:08 Departure-Patient Inst. Referrals: NO,LOCAL PHYSICIAN (PCP/Family) Primary Care Physician NORMA TAMEZ MD Sep 22, 2022 11:59
[2022-09-22 12:01] LABS: ALBUMIN 3.4 GM/DL (3.2-4.5); POTASSIUM 5.2 MMOL/L (3.6-5.0)
[2022-09-22 12:02] LABS: CALCIUM 9.2 MG/DL (8.5-10.1)
[2022-09-22 12:03] LABS: INR 1.3 (0.8-1.4); PROTHROMBIN TIME PATIENT 16.4 SEC (12.2-14.7); TOTAL PROTEIN 6.9 GM/DL (6.4-8.2)
[2022-09-22 12:05] LABS: BILIRUBIN,TOTAL 0.2 MG/DL (0.1-1.0)
[2022-09-22 12:07] LABS: CREATININE SERUM 1.05 MG/DL (0.60-1.30)
[2022-09-22 12:10] LABS: MAGNESIUM 1.7 MG/DL (1.6-2.4)
--- NOTE | 2022-09-22 12:13 | Diagnostic Imaging Report ---
Indication: Intermittent left-sided chest wall pain. Time of Exam: 11:54 AM Correlation is made with prior chest 09/11/2019. Changes of median sternotomy are noted. There appears to be a small left pleural effusion. There may be minimal infiltrate or atelectasis in the left base, as well. Right lung is clear. No pneumothorax is identified. IMPRESSION: Small left pleural effusion with mild left basilar infiltrate and/or atelectasis. Dictated by: Dictated on workstation # [id number]
[2022-09-22] MEDS ORDERED: ASPIRIN 81 MG CHEW (CHILDREN'S ASA) PO ONE (12:15)
[2022-09-22] MEDS ORDERED: MELATONIN 3 MG TABLET PO PRN (14:30)
[2022-09-22] MEDS ORDERED: polyethylene glycoL POWDER 17 GM (MIRALAX) PACK PO PRN (14:30)
[2022-09-22] MEDS ORDERED: ACETAMINOPHEN 325 MG TABLET PO PRN (14:30)
[2022-09-22] MEDS ORDERED: ONDANSETRON 4 MG/2 ML (SDV) Z0FRAN IV PRN (14:30)
[2022-09-22 14:50] VITALS: BP 141/92
[2022-09-22] MEDS ORDERED: ENOXAPARIN 150 MG/ML (LOVENOX) SYR SQ SCH (15:00)
--- NOTE | 2022-09-22 15:11 | Consultation-Cardiology ---
HPI-Cardiology Cardiology Consultation Date of Consultation 09/22/22 Date of Admission Time Seen by Provider: 15:01 Indication: Chest pain HPI 67 years old gentleman with a history of diabetes mellitus, coronary artery disease, history of CABG, peripheral arterial disease, femoropopliteal bypass, hypertension and hyperlipidemia. Admitted with increasing chest pain, nature in the retrosternal area usually with exertion, he was at the hyperbaric chamber With therapy for his nonhealing wound. He was referred to the emergency room, noted to have mild elevation in troponin. Responded to sublingual nitroglycerin Home Medications & Allergies Allergies: Coded Allergies: No Known Drug Allergies (Unverified , 12/22/17) Home Medication List Reviewed: Yes IWA-Dwdcbm-Lrlupr Hx Patient Social History Marital Status: Employed/Student: retired Drug of Choice: THC Smoking Status: Former Smoker Type Used: Cigarettes 2nd Hand Smoke Exposure: Yes Recent Hopitalizations: No Have you traveled recently?: No Alcohol Use?: No Substance type: Marijuana Past Medical History Discussed below Family Medical History Significant Family History: No Pertinent Family Hx Review of Systems-General Review of Systems Constitutional: see HPI EENTM: see HPI, no symptoms reported Respiratory: no symptoms reported, see HPI, dyspnea on exertion Cardiovascular: see HPI, chest pain Gastrointestinal: no symptoms reported, see HPI Genitourinary: no symptoms reported, see HPI Musculoskeletal: no symptoms reported, see HPI Skin: no symptoms reported, see HPI Psychiatric/Neurological: No Symptoms Reported, See HPI Reviewed Test Results Reviewed Test Results Lab Laboratory Tests Test 09/22/22 11:40 Range/Units White Blood Count 8.2 4.3-11.0 10^3/uL Red Blood Count 3.65 L 4.30-5.52 10^6/uL Hemoglobin 10.1 L 13.3-17.7 g/dL Hematocrit 32 L 40-54 % Mean Corpuscular Volume 89 80-99 fL Mean Corpuscular Hemoglobin 28 25-34 pg Mean Corpuscular Hemoglobin Concent 31 L 32-36 g/dL Red Cell Distribution Width 17.1 H 10.0-14.5 % Platelet Count 302 130-400 10^3/uL Mean Platelet Volume 8.7 L 9.0-12.2 fL Immature Granulocyte % (Auto) 0 % Neutrophils (%) (Auto) 77 H 42-75 % Lymphocytes (%) (Auto) 16 12-44 % Monocytes (%) (Auto) 7 0-12 % Eosinophils (%) (Auto) 1 0-10 % Basophils (%) (Auto) 0 0-10 % Neutrophils # (Auto) 6.3 1.8-7.8 10^3/uL Lymphocytes # (Auto) 1.3 1.0-4.0 10^3/uL Monocytes # (Auto) 0.5 0.0-1.0 10^3/uL Eosinophils # (Auto) 0.1 0.0-0.3 10^3/uL Basophils # (Auto) 0.0 0.0-0.1 10^3/uL Immature Granulocyte # (Auto) 0.0 0.0-0.1 10^3/uL Prothrombin Time 16.4 H 12.2-14.7 SEC INR Comment 1.3 0.8-1.4 Activated Partial Thromboplast Time 38 H 24-35 SEC Sodium Level 140 135-145 MMOL/L Potassium Level 5.2 H 3.6-5.0 MMOL/L Chloride Level 106 98-107 MMOL/L Carbon Dioxide Level 25 21-32 MMOL/L Anion Gap 9 5-14 MMOL/L Blood Urea Nitrogen 36 H 7-18 MG/DL Creatinine 1.05 0.60-1.30 MG/DL Estimat Glomerular Filtration Rate 78 BUN/Creatinine Ratio 34 Glucose Level 114 H 70-105 MG/DL Calcium Level 9.2 8.5-10.1 MG/DL Corrected Calcium 9.7 8.5-10.1 MG/DL Magnesium Level 1.7 1.6-2.4 MG/DL Total Bilirubin 0.2 0.1-1.0 MG/DL Aspartate Amino Transf (AST/SGOT) 33 5-34 U/L Alanine Aminotransferase (ALT/SGPT) 44 0-55 U/L Alkaline Phosphatase 126 40-136 U/L Myoglobin 112.3 H 10.0-92.0 NG/ML Troponin I 0.061 H <0.028 NG/ML Total Protein 6.9 6.4-8.2 GM/DL Albumin 3.4 3.2-4.5 GM/DL Physical Exam Physical Exam Vital Signs Vital Signs - First Documented 09/22/22 11:10 Temp 36.9 Pulse 72 Resp 16 B/P (MAP) 129/76 (93) Pulse Ox 95 O2 Delivery Room Air Capillary Refill : Less Than 3 Seconds Height, Weight, BMI Height: 6'1.00" Weight: 190lbs. oz. 86.320835ey; 21.00 BMI Method:Estimated General Appearance: No Apparent Distress, WD/WN Eyes: Bilateral Eye Normal Inspection, Bilateral Eye PERRL, Bilateral Eye EOMI HEENT: PERRL/EOMI, TMs Normal, Normal ENT Inspection, Pharynx Normal, Moist Mucous Membranes Neck: Full Range of Motion, Normal Inspection, Non Tender, Supple, Carotid Bruit Respiratory: Chest Non Tender, Normal Breath Sounds, No Accessory Muscle Use, No Respiratory Distress Cardiovascular: Regular Rate, Rhythm, No Edema, No JVD, Normal Peripheral Pulses, Systolic Murmur, Gallop/S3 Gastrointestinal: Normal Bowel Sounds, No Organomegaly, No Pulsatile Mass, Non Tender, Soft Back: Normal Inspection, No CVA Tenderness, No Vertebral Tenderness Extremity: Normal Inspection, Normal Range of Motion, Non Tender Neurologic/Psychiatric: Alert, Oriented x3, No Motor/Sensory Deficits, Normal Mood/Affect Skin: Normal Color, Warm/Dry Lymphatic: No Adenopathy A/P-Cardiology Admission Diagnosis Chest pain Unstable angina Coronary artery disease Peripheral arterial disease Assessment/Plan Chest pain resembling angina, unstable angina. Mild elevation in troponin Started on aspirin and Plavix, repeat troponin level and follow the trend, probably will need cardiac catheterization possible PTCA Coronary artery disease, history of CABG x3 done in 2007 in [facility]. No recent cardiac work-up Severe extensive peripheral arterial disease, had angiogram done in October 2020, the right side had 50% stenosis of the right common iliac, total occlusion of the common femoral artery with distal reconstruction, 90% distal superficial femoral artery with two-vessel runoff. On the left side there is a long 99% common femoral occlusion with distal reconstruction, occlusion of the popliteal artery. Nonhealing ulcer of the foot, had multiple amputation, patient is currently undergoing hyperbaric chamber treatment History of severe pulmonary hypertension, will evaluate 2D echocardiogram COPD Diabetes mellitus, followed and managed by primary care physician Active smoking, educated on smoking cessation. Clinical Quality Measures AMI/AHF: ASA po Prior to arrival: RJ Wise MD Sep 22, 2022 15:10
[2022-09-22 15:33] VITALS: BP 123/50
[2022-09-22] MEDS ORDERED: PANT40TA52 PO (15:33)
[2022-09-22] MEDS ORDERED: SILD20TA14 PO (15:33)
[2022-09-22] MEDS ORDERED: AMLO-250 PO (15:33)
[2022-09-22] MEDS ORDERED: METF-397 PO (15:33)
[2022-09-22] MEDS ORDERED: POTA99CA PO (15:33)
[2022-09-22] MEDS ORDERED: FERR-84 PO (15:33)
[2022-09-22] MEDS ORDERED: RIVA2.5T5 PO (15:33)
[2022-09-22] MEDS ORDERED: LISI5TAB20 PO (15:33)
[2022-09-22] MEDS ORDERED: MULT-1136 PO (15:33)
[2022-09-22] MEDS ORDERED: ATOR80TA76 PO (15:34)
[2022-09-22] MEDS ORDERED: CLOP75TA28 PO (15:34)
--- NOTE | 2022-09-22 15:36 | History & Physical-Hospitalist ---
History of Present Illness HPI/Chief Complaint Patient is 67-year-old male with past medical history of coronary artery disease status post CABG, insulin-dependent diabetes type 2, hypertension, hyperlipidemia who presented to the emergency department due to chest pain. He reports that started this morning when he was walking into the hospital for hyperbaric therapy for a wound he has on his foot. He denies any associated dyspnea, nausea, diaphoresis and states it is mostly that his chest is tender. He had a CABG in 2007 and has not seen a reservationist since 2009. In the past year or 2 he states he has lost roughly 30 to 40 pounds due to dental issues and poor oral intake from that. He has prominent sternotomy wires noted on his chest and that is where he states his pain is and it is tender with palpation. Source: patient Date Seen 09/22/22 Time Seen by a Provider: 14:45 Attending Physician No,Local Physician PCP Admitting Physician: Curtis Pereyra MD Attending Physician: Curtis Pereyra MD Referring Physician Date of Admission Sep 22, 2022 at 13:42 Home Medications & Allergies Home Medications Reviewed patient Home Medication Reconciliation performed by pharmacy medication reconciliations casting technician and/or nursing. Patients Allergies have been reviewed. Allergies Allergies Coded Allergies No Known Drug Allergies (Unverified12/22/17) Past Esnbefn-Jxpdgp-Oukoyx Hx Patient Social History Marrital Status: Employed/Student: retired Tobacco Use?: No Smoking Status: Former Smoker Use of E-Cig and/or Vaping dev: No Substance use?: No (history of illicit drug use) Substance type: Methamphetamine, Hallucinogens, Nicotine, Marijuana Additional substance use comme: LSD/COKE--NO LONGER USES Substance frequency: Daily Alcohol Use?: No Additional Alcohol Comments: NO ETOH IN 3 YEARS Pt feels they are or have been: No Immunizations Up To Date First/Initial COVID19 Vaccinat: 2020 PED Vaccines UTD: Yes Seasonal Allergies Seasonal Allergies: No Current Status Advance Directives: No Communicates: Verbally Primary Language: Mosotho Preferred Spoken Language: Mosotho Is interpretation needed?: No Sensory deficits: Vision impairment, Hearing impairment Implanted or Applied Medical D: None Past Medical History Surgeries: Cardiac, CABG, Orthopedic Currently Using CPAP: No Currently Using BIPAP: No Coronary Artery Disease, High Cholesterol, Hypertension Liver Disease/Jaundice Amputee Diabetes, Non-Insulin dep Blood Disorders: No Family Medical History No Pertinent Family Hx Review of Systems Constitutional: no symptoms reported EENTM: no symptoms reported Respiratory: see HPI Cardiovascular: see HPI, chest pain Gastrointestinal: no symptoms reported Genitourinary: no symptoms reported Musculoskeletal: no symptoms reported Skin: no symptoms reported Psychiatric/Neurological: No Symptoms Reported Physical Exam Physical Exam Vital Signs Vital Signs - First Documented 09/22/22 11:10 Temp 36.9 Pulse 72 Resp 16 B/P (MAP) 129/76 (93) Pulse Ox 95 O2 Delivery Room Air Capillary Refill : Less Than 3 Seconds Height, Weight, BMI Height: 6'1.00" Weight: 190lbs. oz. 86.698829pp; 21.09 BMI Method:Estimated General Appearance: No Apparent Distress, Chronically ill, Thin HEENT: PERRL/EOMI, Moist Mucous Membranes; No Scleral Icterus (L), No Scleral Icterus (R) Neck: Normal Inspection, Supple Respiratory: Lungs Clear, No Accessory Muscle Use, No Respiratory Distress, Other (prominent sternotomy wires) Cardiovascular: Regular Rate, Rhythm, No Murmur Gastrointestinal: Normal Bowel Sounds, Non Tender, Soft Extremity: Normal Capillary Refill, No Calf Tenderness, No Pedal Edema Neurologic/Psychiatric: Alert, Oriented x3, Normal Mood/Affect Skin: Normal Color, Warm/Dry Results Results/Procedures Labs Laboratory Tests 09/22/22 11:40 09/23/22 05:30 09/23/22 05:50 Patient resulted labs reviewed. Imaging: Reviewed Imaging Report Imaging [facility], [place] NAME: JONATHAN FARRARHumza Cha [facility] REC#: [id number] PT STATUS: ADM Alice : 1955 PHYSICIAN: NORMA TAMEZ MD ADMIT DATE: 09/22/22/[facility] Signed Date of Exam:09/22/22 CHEST 1 VIEW, AP/PA ONLY Indication: Intermittent left-sided chest wall pain. Time of Exam: 11:54 AM Correlation is made with prior chest 09/11/2019. Changes of median sternotomy are noted. There appears to be a small left pleural effusion. There may be minimal infiltrate or atelectasis in the left base, as well. Right lung is clear. No pneumothorax is identified. IMPRESSION: Small left pleural effusion with mild left basilar infiltrate and/or atelectasis. Dictated by: Dictated on workstation # [id number] Dict: 09/22/22 1210 Trans: 09/22/22 1536 [facility] [id number] Interpreted by: OLEGARIO MOODY MD Electronically signed by: OLEGARIO MOODY MD 09/22/22 1536 Assessment/Plan Admission Diagnosis NSTEMI Admission Status: Observation Assessment and Plan NSTEMI CAD s/p CABG Troponin elevated on arrival Trend Telemetry Cardiology consulted, appreciate recs NPO until seen by cardiology IDDMII Only on Levemir at home SSI HTN HLD Continue home meds as able Clinical Quality Measures AMI/AHF: ASA po Prior to arrival: CURTIS Paez MD Sep 22, 2022 15:36
[2022-09-22] MEDS: ENOXAPARIN 80 MG/0.8 ML (LOVENOX) SYR SC SCH (15:38)
[2022-09-22] MEDS: NS IV 1000 ML 1,000 ML IV SCH (15:38)
[2022-09-22] MEDS ORDERED: FLU QUAD HIGH DOSE 240 MCG/0.7 ML 2022-23 (FLUZONE) IM ONE (15:45)
[2022-09-22] MEDS: inSUlin ASPART (NovoLOG) 1 UNIT/0.01 ML (CHARGE PER UNIT) SC SCH ×2 (15:55→20:47)
[2022-09-22 20:00] VITALS: BP 115/57
[2022-09-22] MEDS ORDERED: NON-FORMULARY MEDICATION 1 EA EA (Rivaroxaban (Xarelto) 2.5 MG) PO SCH (21:00)
[2022-09-23] VITALS: BP 95/53
[2022-09-23] MEDS: NS IV 1000 ML 1,000 ML IV SCH ×2 (02:21→10:08)
[2022-09-23] MEDS: ENOXAPARIN 80 MG/0.8 ML (LOVENOX) SYR SC SCH ×2 (04:26→18:27)
[2022-09-23] MEDS: inSUlin ASPART (NovoLOG) 1 UNIT/0.01 ML (CHARGE PER UNIT) SC SCH ×3 (05:40→17:22)
[2022-09-23 06:14] LABS: HEMATOCRIT 31 % (40-54); HEMOGLOBIN 9.9 g/dL (13.3-17.7); MEAN CORPUSCULAR HEMOGLOBIN 27 pg (25-34); MEAN CORPUSCULAR HGB CONC 32 g/dL (32-36); MEAN CORPUSCULAR VOLUME 86 fL (80-99); PLATELET COUNT 271 10^3/uL (130-400)
--- NOTE | 2022-09-23 06:48 | Discharge Inst-Simple/Standard ---
Discharge Inst-Standard Discharge Medications New, Converted or Re-Newed RX: Transmitted to Pharmacy Patient Instructions/Follow Up Plan of Care/Instructions/FU: Please continue to take your medications as written. Please follow up with your primary care doctor to follow up this hospital stay. Activity as Tolerated: Yes Discharge Diet: ADA Diet, Cardiac Diet Return to The Hospital For: Chest pain, shortness of breath, fever, weakness, if you feel you are getting worse. CURTIS BORGES MD Sep 23, 2022 06:48
[2022-09-23 06:50] LABS: POTASSIUM 4.3 MMOL/L (3.6-5.0)
[2022-09-23 06:52] LABS: CALCIUM 8.8 MG/DL (8.5-10.1)
[2022-09-23 06:56] LABS: CREATININE SERUM 0.72 MG/DL (0.60-1.30)
[2022-09-23 07:49] VITALS: BP 120/59
--- NOTE | 2022-09-23 08:31 | Cardiology Progress Note ---
Subjective Date Seen by Provider: Sep 23, 2022 Time Seen by Provider: 08:30 Subjective/Events-last exam Patient was seen at bedside, laying down comfortably, feeling better. No chest pain was reported Review of Systems General: No Chills, No Night Sweats, No Fatigue, No Malaise, No Appetite, No Other HEENT: No Head Aches, No Visual Changes, No Eye Pain, No Ear Pain, No Dysphasia, No Sinus Congestion, No Post Nasal Drip, No Sore Throat, No Other Pulmonary: No Dyspnea, No Cough, No Pleuritic Chest Pain, No Other Cardiovascular: No: Chest Pain, Palpitations, Orthopnea, Paroxysmal Noc. Dyspnea, Edema, Lt Headedness, Other Objective-Cardiology Exam Last Set of Vital Signs Vital Signs 09/23/22 09/23/22 00:00 07:49 Temp 37.4 Pulse 68 Resp 19 B/P (MAP) 120/59 (79) Pulse Ox 95 O2 Delivery Room Air I&O Intake and Output 09/23/22 00:00 Intake Total 340 ml Output Total 250 ml Balance 90 ml Intake Oral 340 ml Output Urine Total 250 ml Daily Weight Change Yes, Greater than 33 lbs General: Alert, Oriented X3, Cooperative HEENT: Atraumatic, PERRLA Neck: Supple, No JVD, No Thyromegaly Lungs: Clear to Auscultation, Normal Air Movement Heart: Regular Rate, Normal S1, Normal S2, Other (Systolic murmur at the left sternal border) Abdomen: Normal Bowel Sounds, Soft, No Tenderness, No Hepatosplenomegaly, No Masses Extremities: No Clubbing, No Cyanosis, No Edema, Normal Pulses, No Tenderness/Swelling Skin: No Rashes, No Breakdown, No Significant Lesion Neuro: Normal Gait, Normal Speech, Strength at 5/5 X4 Ext, Normal Tone, Sensation Intact Psych/Mental Status: Mental Status NL, Mood NL Results Lab Laboratory Tests 09/22/22 11:40 09/23/22 05:30 09/23/22 05:50 A/P-Cardiology Admission Diagnosis Chest pain Unstable angina Coronary artery disease Peripheral arterial disease Assessment/Plan Chest pain, unstable angina, non-ST elevation myocardial infarction Mild elevation in troponin Started on aspirin and Plavix, Planning to proceed with cardiac catheterization possible PTCA Coronary artery disease, history of CABG x3 done in 2007 in [facility]. No recent cardiac work-up Severe extensive peripheral arterial disease, had angiogram done in October 2020, the right side had 50% stenosis of the right common iliac, total occlusion of the common femoral artery with distal reconstruction, 90% distal superficial femoral artery with two-vessel runoff. On the left side there is a long 99% common femoral occlusion with distal reconstruction, occlusion of the popliteal artery. Nonhealing ulcer of the foot, had multiple amputation, patient is currently undergoing hyperbaric chamber treatment History of severe pulmonary hypertension, will evaluate 2D echocardiogram COPD Diabetes mellitus, followed and managed by primary care physician Active smoking, educated on smoking cessation. RJ ORTIZ MD Sep 23, 2022 08:31
--- NOTE | 2022-09-23 08:31 | Cardiac Procedure Note-CS/ASA ---
Pre-Procedure Note Pre-Op Procedure Note Date of Available H&P: Sep 23, 2022 Date H&P Reviewed: Sep 23, 2022 Time H&P Reviewed: 08:31 History & Physical: H&P Reviewed, Patient Examed, No changes noted Pre-Operative Diagnosis: NSTMI Conscious Sedation Pre-Proced Time 08:31 ASA Score 3 For ASA 3 and 4: Consider anesthesia and medical clearance. Also, for patients with a history of failed moderate sedation consider anesthesia. Airway Lungs Heart ASA score ASA 1: a normal healthy patient ASA 2: a patient with a mild systemic disease (mid diabetes, controlled hypertension, obesity ASA 3: a patient with a severe systemic disease that limits activity (angina, COPD, prior Myocardial infarction) ASA 4: a patient with an incapacitating disease that is a constant threat to life (CHF, renal failure) ASA 5: a moribund patient not expected to survive 24 hrs. (ruptured aneurysm) ASA 6: a declared brain- patient whose organs are being harvested. For emergent operations, add the letter E after the classification Mallampati Classification Grade 3 Sedation Plan Analgesia, Amnesia, Plan communicated to team members, Discussed options with patient/fam, Discussed risks with patient/fam The patient is an appropriate candidate to undergo the planned procedure, sedation, and anesthesia. The patient immediately re-assessed prior to indication. RJ ORTIZ MD Sep 23, 2022 08:31
[2022-09-23] MEDS ORDERED: amLODIPine 5 MG (NORVASC) TAB PO SCH (09:00)
[2022-09-23] MEDS ORDERED: RIVAROXABAN 2.5 MG TABLET (XARELTO) PO SCH (09:00)
[2022-09-23] MEDS ORDERED: PANTOPRAZOLE 40 MG (PROTONIX) TAB PO SCH (09:00)
[2022-09-23] MEDS ORDERED: lisINopril 5 MG (PRINIVIL) TABLET PO SCH (09:00)
[2022-09-23] MEDS ORDERED: CLOPIDOGREL 75 MG (PLAVIX) TABLET PO SCH (09:00)
[2022-09-23] MEDS ORDERED: HEParin 1000 UNIT/ML (10ML VIAL) FOR BOLUS ONE (09:10)
[2022-09-23] MEDS ORDERED: LIDOCAINE 1% INJ 30 ML (XYLOCAINE) VIAL ONE (09:10)
[2022-09-23] MEDS ORDERED: VERAPAMIL 5 MG/2 ML (CALAN) VIAL IV ONE (09:10)
[2022-09-23] MEDS ORDERED: MIDAZOLAM 2 MG/2 ML (VERSED) VIAL ONE (09:10)
[2022-09-23] MEDS ORDERED: fentaNYL INJ 100 MCG/2 ML AMP ONE (09:10)
[2022-09-23] MEDS ORDERED: HEParin (CATH LAB) 2,000 ML IV ONE (09:10)
[2022-09-23] MEDS ORDERED: NITRO DRIP 25000 MCG/D5W 250 ML IV ONE (09:11)
[2022-09-23] MEDS ORDERED: NS IV 1000 ML 1,000 ML IV SCH (10:15)
--- NOTE | 2022-09-23 10:23 | Cardiac Cath Report ---
Cardiac Cath Report Physician (s)/Cable Tool Driller (s) Physician RJ ORTIZ MD Pre-Procedure Diagnosis Pre-Procedure Diagnosis: NSTMI Post-Procedure Note Procedure Start Date: Sep 23, 2022 Name of Procedure: Left heart catheterization Vein graft angiogram, LOCKHART angiogram Aortic root angiogram Aortic arch angiogram Findings/Procedure Note PROCEDURE NOTE: 67-year-old gentleman with history of coronary artery disease, CABG, extensive peripheral arterial disease, admitted with non-ST elevation myocardial infarction, cardiac catheterization was advised. After explaining the procedure to the patient, all pros and cons were explained, all questions were answered. The patient signed the consent and then he was placed on the cardiac catheterization laboratory. Groin was prepped SL fashion local anesthesia was used. Sheath placed in the left radial artery, Carolyne left diagnostic catheter was advanced and engaged the left coronary system, angiogram was done. Then it was exchanged over a long J-wire and advanced Carolyne right catheter that was prolapsed to the left ventricular cavity and pressure was measured, pullback LV to aorta was done. Engaged the right coronary artery. I attempted to engage the vein grafts without success. I was able to engage the internal mammary artery and angiogram was done then the catheter was advanced again and I used a long exchange wire and placed a pigtail catheter in the aortic root and aortic root angiogram was done then I pulled it back to the aortic arch and aortic arch angiogram was done. Then I remove the catheter over a wire. At the end of the procedure the sheath was removed. Vascular band was used FINDINGS: Hemodynamics LV 91/9, end-diastolic pressure of 9 Aorta 100/58 mean of 79 ANATOMY: Left Main has mild disease nonobstructive disease Left Anterior Descending has severe proximal disease, the LOCKHART to the LAD is patent with good flow in the LAD that is giving collaterals to the obtuse marginal and to the right coronary artery Left Circumflex has subtotal occlusion at the midportion at a trifurcation area involving obtuse marginal and proper circumflex artery and the AV branch. The vein graft to the circumflex artery appears to be occluded and there are collaterals filling the obtuse marginal branch from the LOCKHART to LAD Right Coronary Artery is occluded proximally, the vein graft to the right coronary artery is presumably occluded, collaterals filling the right from the LOCKHART to LAD LV Gram was not done, pressure was measured Vein graft angiogram multiple attempt to engage any vein graft was unsuccessful. There were no vein grafts were visualized LOCKHART angiogram showed patent LOCKHART to the LAD with excellent flow in the LAD that is giving collaterals filling the obtuse marginal branch and the right coronary artery Aortic root angiogram was done showing slightly prominent aorta, no dissection or aneurysm, I did not see any filling in the vein grafts. Aortic arch angiogram was done showing slightly prominent aortic arch, no dissection or aneurysm, normal origin of the brachiocephalic artery left carotid and left subclavian artery. CONCLUSION: 1. Patent LOCKHART to LAD filling the LAD and giving collaterals filling the obtuse marginal branch and the right coronary artery 2. Presumably occluded 2 vein graft probably to the obtuse marginal and to the right coronary artery 3. Subtotal occlusion at the mid circumflex artery at the trifurcation point involving the proper circumflex artery and obtuse marginal branch and the AV branch, high risk for intervention with possibility of occluding the branches. Patient has collaterals filling the obtuse marginal branch 4. Total occlusion of the proximal right coronary artery with probably occluded vein graft, collaterals filling the right coronary artery from the LOCKHART to the LAD 5. Normal left ventricular end-diastolic pressure DISCUSSION AND RECOMMENDATION: Continue to maximize medical therapy. Adding aspirin and Plavix and Xarelto Anesthesia Type: Conscious Sedation Estimated blood loss (mL): 15 ml Contrast Amount: 60 ml Total Radiation Dose: 240 mGy Post-Procedure Diagnosis Post-operative diagnosis: Non-ST elevation myocardial infarction Coronary artery disease Hypertension Hyperlipidemia RJ ORTIZ MD Sep 23, 2022 10:23
[2022-09-23] MEDS ORDERED: CATHETER FLUSH 10 ML SYR IVP PRN (10:30)
[2022-09-23 12:00] VITALS: BP 102/66
--- NOTE | 2022-09-23 12:00 | Discharge Summary ---
Diagnosis/Chief Complaint Date of Admission Sep 22, 2022 at 13:42 Date of Discharge Discharge Date: Sep 23, 2022 Admission Diagnosis NSTEMI Primary Care No,Local Physician Discharge Summary Discharge Physical Exam Allergies: Coded Allergies: No Known Drug Allergies (Unverified , 12/22/17) Vitals & I&Os Vital Signs Date Time Temp Pulse Resp B/P (MAP) Pulse Ox O2 Delivery O2 Flow Rate FiO2 09/23/22 08:00 95 Room Air 09/23/22 07:49 37.4 68 19 120/59 (79) Hospital Course Labs (last 24 hrs) Laboratory Tests 09/22/22 15:25: Troponin I 0.047H 09/22/22 15:53: Glucometer 93 09/23/22 05:30: Glucometer 86, White Blood Count 7.0, Red Blood Count 3.61L, Hemoglobin 9.9L, Hematocrit 31L, Mean Corpuscular Volume 86, Mean Corpuscular Hemoglobin 27, Mean Corpuscular Hemoglobin Concent 32, Red Cell Distribution Width 17.1H, Platelet Count 271, Mean Platelet Volume 9.0 09/23/22 05:50: Troponin I 0.065H, Sodium Level 139, Potassium Level 4.3, Chloride Level 109H, Carbon Dioxide Level 24, Anion Gap 6, Blood Urea Nitrogen 19H, Creatinine 0.72, Estimat Glomerular Filtration Rate 100, BUN/Creatinine Ratio 26, Glucose Level 84, Calcium Level 8.8, Triglycerides Level 34, Cholesterol Level 92, LDL Cholesterol Direct 48, VLDL Cholesterol 7, HDL Cholesterol 34L 09/23/22 11:12: Glucometer 107 Patient resulted labs reviewed. Pending Labs Laboratory Tests 09/23/22 05:30: White Blood Count 7.0, Red Blood Count 3.61, Hemoglobin 9.9, Hematocrit 31, Mean Corpuscular Volume 86, Mean Corpuscular Hemoglobin 27, Mean Corpuscular Hemoglobin Concent 32, Red Cell Distribution Width 17.1, Platelet Count 271, Mean Platelet Volume 9.0, Glucometer 86 09/23/22 05:50: Sodium Level 139, Potassium Level 4.3, Chloride Level 109, Carbon Dioxide Level 24, Anion Gap 6, Blood Urea Nitrogen 19, Creatinine 0.72, Estimat Glomerular Filtration Rate 100, BUN/Creatinine Ratio 26, Glucose Level 84, Calcium Level 8.8, Troponin I 0.065, Triglycerides Level 34, Cholesterol Level 92, LDL Cholesterol Direct 48, VLDL Cholesterol 7, HDL Cholesterol 34 09/23/22 11:12: Glucometer 107 Imaging: Reviewed Imaging Report Discharge Home Medications: Active Scripts Active Reported Clopidogrel (Clopidogrel Bisulfate) 75 Mg Tablet 75 Mg PO DAILY Atorvastatin Calcium 80 Mg Tablet 80 Mg PO HS Multivitamin 1 Each Tablet 1 Each PO DAILY Potassium (Potassium Citrate) 99 Mg Capsule 99 Mg PO HS Iron (Ferrous Sulfate) 325 Mg (65 Mg Iron) Tablet 325 Mg PO DAILY Pantoprazole Sodium 40 Mg Tablet.dr 40 Mg PO DAILY Xarelto (Rivaroxaban) 2.5 Mg Tablet 2.5 Mg PO BID Sildenafil (Sildenafil Citrate) 20 Mg Tablet 20 Mg PO UD PRN TAKE 30 MINUTES BEFORE ANTICIPATED ACTIVITY Amlodipine Besylate 5 Mg Tablet 2.5 Mg PO DAILY TAKES OF A 5MG Metformin HCl 500 Mg Tablet 500 Mg PO BID Lisinopril 5 Mg Tablet 5 Mg PO DAILY Levemir (Insulin Determir) 100 Unit/Ml Soln 10 Units SQ BID Instructions to patient/family Please see electronic discharge instructions given to patient. Clinical Quality Measures AMI/AHF: ASA po Prior to arrival: CURTIS Paez MD Sep 23, 2022 12:00
[2022-09-23] MEDS ORDERED: ISOS30TA82 PO (12:05)
[2022-09-23] MEDS ORDERED: ASPI-1238 PO (12:05)
[2022-09-23 15:53] VITALS: BP 110/69
[2022-09-24] MEDS ORDERED: CLOPIDOGREL 75 MG (PLAVIX) TABLET PO SCH (09:00)
[2022-09-24] MEDS ORDERED: ISOSORBIDE MONONITRATE 30 MG (IMDUR) TAB PO SCH (09:00)
[2022-09-24] MEDS ORDERED: ASPIRIN E.C. 81 MG (ECOTRIN) TAB PO SCH (09:00)
== END 2022-09-23 12:07 | disposition home or self-care (01) ==
LOC: EDUNIT# 11:01 → ER 11:03 → UNDOADMOB 13:42 → CSD 13:42 → UNDODISOB 09-23 12:07
PROVIDERS: ADMIT Family Medicine; ATTEND Family Medicine
DX: I21.4 Non-ST elevation (NSTEMI) myocardial infarction (principal); Z87.891 Personal history of nicotine dependence; E11.59 Type 2 diabetes mellitus with other circulatory complications; Z79.4 Long term (current) use of insulin; I07.1 Rheumatic tricuspid insufficiency
CPT/HCPCS: 36221; 71045; 80048; 80053; 80061; 82947 ×2; 83735; 83874; 84484 ×2; 85025; 85027; 85610; 85730; 93005; 93041; 93459; 93567; 96361 ×2; 96372 ×2; 99284; C1894; C8929; G0378; 36415; 93306

== ENCOUNTER → 2022-09-27 | Outpatient (CLI) | payer MEDICARE ==
[~2022-09-27] MED LIST changes: +AMLO-250 PO; +ASPI-1238 PO; +FERR-84 PO; +ISOS30TA82 PO; +LISI5TAB20 PO; +METF-397 PO; +MULT-1136 PO; +PANT40TA52 PO; +POTA99CA PO; +RIVA2.5T5 PO; +SILD20TA14 PO
== END ==
LOC: WOUNDCARE 09:06
PROVIDERS: ATTEND Family Medicine
DX: T81.31XA Disruption of external operation (surgical) wound, not elsewhere classified, initial encounter (principal); M86.472 Chronic osteomyelitis with draining sinus, left ankle and foot; E11.621 Type 2 diabetes mellitus with foot ulcer; E11.40 Type 2 diabetes mellitus with diabetic neuropathy, unspecified; I70.245 Atherosclerosis of native arteries of left leg with ulceration of other part of foot; E11.52 Type 2 diabetes mellitus with diabetic peripheral angiopathy with gangrene
CPT/HCPCS: A6021; G0463; 99213

== ENCOUNTER → 2022-10-04 | Outpatient (CLI) | payer MEDICARE | LOC: WOUNDCARE 08:59 | PROVIDERS: ATTEND Family Medicine | DX: T81.31XA Disruption of external operation (surgical) wound, not elsewhere classified, initial encounter (principal); I96 Gangrene, not elsewhere classified; M86.472 Chronic osteomyelitis with draining sinus, left ankle and foot; I70.245 Atherosclerosis of native arteries of left leg with ulceration of other part of foot; E11.621 Type 2 diabetes mellitus with foot ulcer; E11.40 Type 2 diabetes mellitus with diabetic neuropathy, unspecified; E11.65 Type 2 diabetes mellitus with hyperglycemia | CPT/HCPCS: 11042; A6021; G0463 ==

== ENCOUNTER 2022-10-05 08:10 | Outpatient (RCR) | payer MEDICARE | END 2022-10-05 12:00 | disposition home or self-care (01) | LOC: WOUNDCARE 08:10 | PROVIDERS: ATTEND Family Medicine | DX: M86.679 Other chronic osteomyelitis, unspecified ankle and foot (principal) | CPT/HCPCS: 82947; G0277; 99183; 99211 ==

== ENCOUNTER → 2022-10-06 | Outpatient (CLI) | payer MEDICARE ==
[~2022-10-06] MED LIST changes: +GADOTERATE 0.5 MMOL/ML (CLARISCAN) 15 ML VIAL IV ONE
--- NOTE | 2022-10-06 13:42 | Diagnostic Imaging Report ---
PROCEDURE: MRI left lower extremity with and without contrast. TECHNIQUE: Multiplanar, multisequence pre and post contrast-enhanced MRI of the left lower extremity was accomplished. INDICATION: Prior 1st toe amputation. Infectious symptoms evaluate for osteomyelitis. EXAMINATION: Left lower extremity MRI with and without contrast 10/06/2022. FINDINGS: There are post amputations changes at the 1st metatarsal phalangeal joint level. The adjacent soft tissues appear unremarkable. Post amputations changes also noted at the 3rd metatarsal phalangeal joint. There is diffuse T2 hyperintensity along the 3rd metatarsal head with mild associated T1 hypointensity. Enhancement within the 3rd metatarsal head is noted with overlying soft tissue enhancement also seen. No abscess appreciated. Best seen on the sagittal images mild enhancement is also seen within the base of the proximal 4th phalanx and adjacent 4th metatarsal head possibly due to osteomyelitis as well. There is mild edema within the mid and distal aspects of the proximal 5th phalanx. This could be due to mild reactive change or osteitis. Early findings of osteomyelitis not excluded. Visualized tendons intact. IMPRESSION: 1. Findings consistent with osteomyelitis involving the 3rd metatarsal head with possible early involvement of the 4th proximal phalanx and adjacent metatarsal head. 2. Mild abnormal signal intensity noted within the 5th proximal phalanx. This could be very early osteomyelitis as well with osteitis also possible. Correlate with clinical symptoms. Otherwise postoperative changes as above. Dictated by: Dictated on workstation # [id number]
== END ==
LOC: RAD 09:10
PROVIDERS: ATTEND Family Medicine
DX: T81.31XA Disruption of external operation (surgical) wound, not elsewhere classified, initial encounter (principal); M86.472 Chronic osteomyelitis with draining sinus, left ankle and foot; E11.621 Type 2 diabetes mellitus with foot ulcer; E11.40 Type 2 diabetes mellitus with diabetic neuropathy, unspecified; I70.245 Atherosclerosis of native arteries of left leg with ulceration of other part of foot; Z89.412 Acquired absence of left great toe
CPT/HCPCS: 73720

== ENCOUNTER → 2022-10-11 | Outpatient (CLI) | payer MEDICARE ==
[~2022-10-11] MED LIST changes: -GADOTERATE 0.5 MMOL/ML (CLARISCAN) 15 ML VIAL IV ONE
== END ==
LOC: WOUNDCARE 11:05
PROVIDERS: ATTEND Family Medicine
DX: T81.31XA Disruption of external operation (surgical) wound, not elsewhere classified, initial encounter (principal); M86.472 Chronic osteomyelitis with draining sinus, left ankle and foot; E11.621 Type 2 diabetes mellitus with foot ulcer; E11.40 Type 2 diabetes mellitus with diabetic neuropathy, unspecified; I70.245 Atherosclerosis of native arteries of left leg with ulceration of other part of foot; E11.65 Type 2 diabetes mellitus with hyperglycemia; E11.52 Type 2 diabetes mellitus with diabetic peripheral angiopathy with gangrene
CPT/HCPCS: 99213

== ENCOUNTER → 2022-10-25 | Outpatient (CLI) | payer MEDICARE | LOC: WOUNDCARE 11:04 | PROVIDERS: ATTEND Family Medicine | DX: T81.31XA Disruption of external operation (surgical) wound, not elsewhere classified, initial encounter (principal); E11.621 Type 2 diabetes mellitus with foot ulcer; E11.40 Type 2 diabetes mellitus with diabetic neuropathy, unspecified; E11.65 Type 2 diabetes mellitus with hyperglycemia; E11.52 Type 2 diabetes mellitus with diabetic peripheral angiopathy with gangrene; I96 Gangrene, not elsewhere classified; I70.245 Atherosclerosis of native arteries of left leg with ulceration of other part of foot; M86.472 Chronic osteomyelitis with draining sinus, left ankle and foot | CPT/HCPCS: 83036; G0463; 36415; 99213 ==

== ENCOUNTER → 2022-11-08 | Outpatient (CLI) | payer MEDICARE | LOC: WOUNDCARE 11:07 | PROVIDERS: ATTEND Family Medicine | DX: T81.31XA Disruption of external operation (surgical) wound, not elsewhere classified, initial encounter (principal); M86.472 Chronic osteomyelitis with draining sinus, left ankle and foot; E11.621 Type 2 diabetes mellitus with foot ulcer; E11.40 Type 2 diabetes mellitus with diabetic neuropathy, unspecified; I70.245 Atherosclerosis of native arteries of left leg with ulceration of other part of foot; E11.65 Type 2 diabetes mellitus with hyperglycemia; E11.52 Type 2 diabetes mellitus with diabetic peripheral angiopathy with gangrene | CPT/HCPCS: A6197; G0463; 99213 ==

== ENCOUNTER 2022-11-17 08:42 | Outpatient (CLI) | payer MEDICARE ==
[~2022-11-17] VITALS: Ht 185 cm; Wt 71.0 kg
[2022-11-24] MEDS ORDERED: ACHD5005 PO (13:28)
== END 2022-11-18 09:47 | disposition home or self-care (01) ==
LOC: PREOP 08:42
PROVIDERS: ATTEND Surgery
DX: Z01.818 Encounter for other preprocedural examination (principal)

== ENCOUNTER 2022-11-24 08:09 | Day surgery (SDC) | payer MEDICARE ==
[~2022-11-24] VITALS: Ht 185.5 cm; Wt 71.0 kg
[2022-11-24] VITALS (11 sets, daily range): BP systolic 121–171; BP diastolic 54–92
[2022-11-24] MEDS ORDERED: ceFAZolin INJECTION 2,000 MG in NS (IVPB) 50 ML IV ONE (08:15)
[2022-11-24] MEDS ORDERED: LACTATED RINGERS 1,000 ML IV PRN (08:15)
--- NOTE | 2022-11-24 08:32 | Progress Note-Pre Operative ---
Pre-Operative Progress Note Date of Available H&P: Oct 31, 2022 Date H&P Reviewed: Nov 24, 2022 Time H&P Reviewed: 08:31 History & Physical: H&P Reviewed, Patient Examed, No changes noted Pre-Operative Diagnosis: left foot osteomyelitis AGUSTINA ESCAMILLA DO Nov 24, 2022 08:32
[2022-11-24] MEDS ORDERED: fentaNYL INJ 100 MCG/2 ML AMP ONE (08:57)
[2022-11-24] MEDS ORDERED: proPOfol 200 MG/20 ML (DIPRIVAN) VIAL IV ONE (08:57)
[2022-11-24] MEDS ORDERED: MIDAZOLAM 2 MG/2 ML (VERSED) VIAL ONE (08:57)
[2022-11-24] MEDS ORDERED: SEVOFLURANE (ULTANE) 15 ML INHAL SOLN ONE ×2 (08:57→11:56)
[2022-11-24] MEDS ORDERED: LIDOCAINE PF 2% 5 ML (XYLOCAINE) VIAL ONE (08:57)
[2022-11-24] MEDS ORDERED: METO50TA15 PO (09:11)
[2022-11-24] MEDS ORDERED: ONDANSETRON 4 MG/2 ML (SDV) Z0FRAN ONE (11:11)
[2022-11-24] MEDS ORDERED: BUPIVACAINE 0.5% 30 ML (SENSORCAINE) VIAL ONE (11:19)
--- NOTE | 2022-11-24 12:20 | Anesthesia-General Post-Op ---
General Patient Condition Mental Status/LOC: Same as Preop Cardiovascular: Satisfactory Nausea/Vomiting: Absent Respiratory: Satisfactory Pain: Controlled Complications: Absent Post Op Complications Complications None Follow Up Care/Instructions Patient Instructions None needed. Anesthesia/Patient Condition Patient Condition Patient is doing well, no complaints, stable vital signs, no apparent adverse anesthesia problems. No complications reported per nursing. MEAGAN GAINES CRNA Nov 24, 2022 12:19
[2022-11-24] MEDS ORDERED: ONDANSETRON 4 MG/2 ML (SDV) Z0FRAN IVP PRN (12:30)
[2022-11-24] MEDS ORDERED: morphine INJ 10 MG/ML 1ML (SYR OR VIAL) IVP ONE (12:30)
[2022-11-24] MEDS ORDERED: MEPERIDINE (DEMEROL) INJ 50 MG/ML IVP ONE (12:30)
[2022-11-24] MEDS ORDERED: ACHD5005 PO (13:28)
--- NOTE | 2022-11-24 13:31 | Discharge Inst-Simple/Standard ---
Discharge Inst-Standard Discharge Medications New, Converted or Re-Newed RX: Transmitted to Pharmacy Patient Instructions/Follow Up Plan of Care/Instructions/FU: 2 weeks Kayla Restart Plavix/Xarelto in 3 days. Activity as Tolerated: No Discharge Diet: Regular Diet Other Inst to Patient Follow up Appt: Make appointment for 2 week. Instructions: No lifting greater than 10 pounds. No strenuous activity. Weight on left heel only. Use knee scoot to assist with moving. May shower in 24 hours, no tub bath or soaking. Use incentive spirometer at home as directed. No Smoking Skin/Wound Care: Change dressing on daily and on as needed basis. Keep area clean and dry. Symptoms to Report: Appetite Changes, Extremity Discoloration, Numbness/Tingling, Swelling Increased, Bleeding Excessive, Eyesight Changes, Pain Increased, Urine Color Change, Constipation(Persistent), Fever over 101 degree F, Pain/Pressure in chest, Urinating Difficulty, Cough Up/Vomit Blood, Heart Beat Irreg/Pounding, Pain/Pressure in jaw, Vaginal Bleeding Increase, Cramps in feet or legs, Lightheadedness, Pain/Pressure in shoulder, Diarrhea(Persistent), Memory Changes Suddenly, Questions/Concerns, Weight gain consecutive days, Dizziness/Fainting, Nausea/Vomiting, Shortness of Breath, Weight gain over 2 pounds If questions or concerns contact your physician Or seek help at emergency department. AGUSTINA ESCAMILLA DO Nov 24, 2022 13:31
--- NOTE | 2022-11-25 00:25 | OPERATIVE REPORT ---
DATE OF SERVICE: 11/24/2022 PREOPERATIVE DIAGNOSIS: Osteomyelitis, left foot. POSTOPERATIVE DIAGNOSIS: Osteomyelitis, left foot. PROCEDURES: Amputation of the second, fourth, and fifth toes with amputation of the third and fourth metatarsal head, left ankle block. SURGEON: Agustina Garza DO ANESTHESIA: General. ESTIMATED BLOOD LOSS: Minimal. COMPLICATIONS: None. INDICATIONS: The patient is a 67-year-old male with long healing issues of the left foot with osteomyelitis. He had MRI suggestive of osteomyelitis and the patient with chronic wound, which he had been followed by Wound Care and they recommended surgical intervention. We discussed the procedure and the patient wishes to proceed. Consent was signed and in the chart. DESCRIPTION OF PROCEDURE: The patient was taken to the operating suite, where he was prepped and draped in sterile fashion. Timeout was performed. A total of 20 mL of Marcaine were used to do ankle block. This was injected posterior to the medial and lateral malleolus, also along the dorsum of the foot spanning across the top. At this time, the 15 blade scalpel was used to make an incision around the second toe. Cautery was used to dissect down through subcutaneous tissues and amputate right at the connection to the metacarpal head. The fourth and fifth toes were also amputated in the same fashion. This exposed the second, third, fourth and fifth metatarsal heads. The second and fifth metatarsal heads had a normal appearance. MRI demonstrating changes on the third and fourth metatarsal heads, which could have a questionable appearance of osteo. Using a saw proximal to these areas, the third and fourth metatarsal head were then amputated. The wound was irrigated with copious amounts of irrigation and hemostasis was achieved. The skin flaps were then brought together, which had adequate amount of tissue along with these appeared viable. Therefore, I decided to close the wound, which was closed with 2-0 Prolenes in a simple interrupted and vertical mattress fashion. The area was washed and dried and a sterile bandage was applied. The patient tolerated the procedure well, no complications, taken to recovery room in stable condition. POSTOPERATIVE PLAN: The patient to continue monitor the area for any changes. He will need to change his dressings daily. Would not ambulate on the foot except for using the heel for balance. The patient will follow up in 2 weeks. Job ID: [id number] DocumentID: [id number] Dictated Date: 11/24/2022 18:54:43 Tubing Tester Date: 11/25/2022 00:23:00 Dictated By: AGUSTINA GARZA DO
== END 2022-11-24 14:40 | disposition home or self-care (01) ==
LOC: SDC 08:09
PROVIDERS: ATTEND Surgery
DX: M86.8X7 Other osteomyelitis, ankle and foot (principal); I25.10 Atherosclerotic heart disease of native coronary artery without angina pectoris; Z87.891 Personal history of nicotine dependence; Z89.412 Acquired absence of left great toe
CPT/HCPCS: 82947; 87081